=== PATIENT | female | born 1970 | race Two or more races ===

== ENCOUNTER 2020-12-25 01:35 | Inpatient (IN) | payer OTHER ==
[~2020-12-25] VITALS: Ht 165.1 cm; Wt 131.7 kg
[2020-12-25] MEDS ORDERED: ADENOSINE 3 MG/ML 2 ML VIAL IVP ONE (01:45)
[2020-12-25] MEDS ORDERED: ACETAMINOPHEN 1000 MG/ISO-OSM 100 ML IV ONE (01:45)
[2020-12-25] MEDS ORDERED: ONDANSETRON HCL 4 MG/2 ML VIAL IVP ONE (01:45)
[2020-12-25] MEDS ORDERED: SODIUM CHLORIDE 0.9% 1,000 ML IV ONE ×2 (01:45)
[2020-12-25 02:11] LABS: ABG A-A DIFF O2 5.2 mmHg (10-20.0); ABG BASE EXCESS -7.1 mmol/L (-2.0-3.0); ABG CARBOXYHEMOGLOBIN 0.6 % (0.0-1.5); ABG HCO3 19.9 mmol/L (22.0-26.0); ABG METHEMOGLOBIN 0.1 % (0.0-1.5); ABG OXYGEN SATURATION 98.1 % (95.0-98.0); ABG OXYHEMOGLOBIN 97.4 % (94.0-100.0); ABG PCO2 34 mmHg (35-45); ABG PH 7.353 (7.35-7.450); PO2, ARTERIAL BG 151.3 mmHg (84.0-92.0); SOURCE, BLOOD GAS ARTERIAL; TEMPERATURE, FAHRENHEIT, BG 106.5 FAHREN (96.0-98.6)
[2020-12-25 02:12] LABS: APPEARANCE,URINE CLEAR (CLEAR); BILIRUBIN,URINE NEGATIVE (NEGATIVE); GLUCOSE, URINE (UA) NEGATIVE (NEGATIVE); KETONES,URINE NEGATIVE (NEGATIVE); LEUKOCYTE ESTERASE ,URINE NEGATIVE (NEGATIVE); NITRATE,URINE NEGATIVE (NEGATIVE); OCCULT BLOOD,URINE LARGE (NEGATIVE); PROTEIN,URINE SEE CONFIRM (NEGATIVE); UROBILINOGEN,URINE 0.2 mg/dL (<=1.0)
[2020-12-25 02:12] LABS: BASOPHILS % (AUTO) 0.3 % (0.0-2.0); EOSINOPHILS % (AUTO) 0.1 % (1.0-6.0); HEMATOCRIT 40.3 % (36-46); HEMOGLOBIN 13.5 g/dL (12.0-16.0); LYMPHOCYTES # (AUTO) 2.1 K/uL (1.0-4.8); LYMPHOCYTES % (AUTO) 19.7 % (22.0-44.0); MEAN CORPUSCULAR HEMOGLOBIN 31.6 pg (26.0-34.0); MEAN CORPUSCULAR HGB CONC 33.4 G/dL (31.0-37.0); MEAN CORPUSCULAR VOLUME 95 fL (80-100); MONOCYTES # (AUTO) 0.3 K/uL (0.1-1.0); MONOCYTES % (AUTO) 2.7 % (2.0-9.0); NEUTROPHILS # (AUTO) 8.3 K/uL (1.8-7.7); NEUTROPHILS % (AUTO) 77.2 % (40.0-70.0); PLATELET COUNT (AUTO) 154 K/uL (150-450); RED BLOOD CELL COUNT(AUTO) 4.25 MIL/uL (4.00-5.20); RED CELL DISTRIBUTION WIDTH 12.6 % (11.5-14.5)
[2020-12-25 02:12] LABS: O2 DEVICE,BLOOD GAS CANNULA (ROOM AIR); SITE, BLOOD GAS LFT RADIAL
[2020-12-25 02:16] LABS: COVID AG,FIA SOURCE NASOPHARYNGEAL
[2020-12-25 02:16] LABS: AMPHET/METH SCREEN,URINE NEGATIVE (NEGATIVE); BARBITURATE SCREEN, URINE NEGATIVE (NEGATIVE); BENZODIAZEPINES SCREEN,URINE NEGATIVE (NEGATIVE); CANNABINOID SCREEN,URINE NEGATIVE (NEGATIVE); COCAINE SCREEN,URINE NEGATIVE (NEGATIVE); METHADONE SCREEN, URINE NEGATIVE (NEGATIVE); OPIATE SCREEN,URINE NEGATIVE (NEGATIVE)
[2020-12-25 02:17] LABS: PHENCYCLIDINE SCREEN,URINE NEGATIVE (NEGATIVE)
[2020-12-25 02:22] LABS: ANION GAP 20 mmol/L (8-16); CALCIUM, TOTAL 8.8 mg/dL (8.8-10.5); CARBON DIOXIDE 16 mmol/L (22-29); CHLORIDE 98 mmol/L (98-107); CREATININE 1.42 mg/dL (0.60-1.30); GLOMERULAR FILTR. RATE CALC 39 mL/min (>60); GLUCOSE,RANDOM 216 mg/dL (70-110); POTASSIUM 4.1 mmol/L (3.5-5.1); SODIUM SERUM 134 mmol/L (136-145); UREA NITROGEN, BLOOD 9 mg/dL (7-18)
[2020-12-25 02:27] LABS: SULFOSALICYLIC ACID,URINE 2+ (Negative)
[2020-12-25 02:29] LABS: BACTERIA,URINE Few /HPF (None Seen); SQUAMOUS EPITHELIAL CELL,UR Rare /LPF (None Seen); WBC,URINE 0-2 /HPF (0-5)
[2020-12-25 02:34] LABS: INR 1.1 (0.9-1.1); PROTHROMBIN TIME 11.6 SEC (9.4-11.6)
[2020-12-25 02:36] LABS: LACTIC ACID 5.9 mmol/L (0.4-2.0); SALICYLATE 0.6 mg/dL (2.8-20.0)
[2020-12-25 02:37] LABS: TROPONIN I < 0.02 ng/mL (0.00-0.05)
[2020-12-25 02:44] LABS: AMMONIA 12 umol/L (11-32)
[2020-12-25 02:45] LABS: B-TYPE NATRIURETIC PEPTIDE 10 pg/mL (0-100)
[2020-12-25] MEDS ORDERED: LORazepam 2 MG/ML VIAL IVP ONE (02:45)
[2020-12-25 02:47] LABS: ALANINE AMINOTRANSFERASE 80 U/L (12-78); ALBUMIN 3.3 g/dL (3.4-5.0); ALKALINE PHOSPHATASE 122 U/L (46-116); ASPARTATE AMINOTRANSFERASE 79 U/L (15-37); BILIRUBIN,TOTAL 1.4 mg/dL (0.1-1.0); CREATINE KINASE, TOTAL ONLY 109 U/L (26-192); LIPASE 60 U/L (73-393); TOTAL PROTEIN, SERUM 7.6 g/dL (6.4-8.2)
[2020-12-25 02:49] LABS: ACETAMINOPHEN < 2 mcg/mL (10-30)
[2020-12-25] MEDS ORDERED: MAGNESIUM SULFATE 1 GM in DEXTROSE 5%-WATER 50 ML IV ONE (03:15)
[2020-12-25] MEDS ORDERED: VANCOMYCIN HCL 1.25 GM in DEXTROSE 5%-WATER 250 ML IV ONE (04:30)
[2020-12-25] MEDS ORDERED: PIPERACILLIN/TAZO 3.375 GM/D5W 50 ML IV ONE (04:30)
[2020-12-25] MEDS ORDERED: SODIUM CHLORIDE 0.9% 500 ML IV ONE (06:00)
[2020-12-25 06:06] LABS: EOSINOPHILS % (AUTO) 0.1 % (1.0-6.0); HEMATOCRIT 34.4 % (36-46); HEMOGLOBIN 11.6 g/dL (12.0-16.0); LYMPHOCYTES % (AUTO) 6.8 % (22.0-44.0); MEAN CORPUSCULAR HGB CONC 33.5 G/dL (31.0-37.0); MEAN CORPUSCULAR VOLUME 95 fL (80-100); MONOCYTES # (AUTO) 1.1 K/uL (0.1-1.0); MONOCYTES % (AUTO) 7.6 % (2.0-9.0); NEUTROPHILS # (AUTO) 12.2 K/uL (1.8-7.7); PLATELET COUNT (AUTO) 116 K/uL (150-450); RED BLOOD CELL COUNT(AUTO) 3.62 MIL/uL (4.00-5.20); RED CELL DISTRIBUTION WIDTH 12.7 % (11.5-14.5)
[2020-12-25] MEDS ORDERED: SODIUM CHLORIDE 0.9% 250 ML IV ONE ×2 (06:20→11:38)
[2020-12-25] MEDS: SODIUM CHLORIDE 0.9% 1,000 ML IV SCH ×3 (06:26→19:08)
[2020-12-25 06:51] LABS: NEUTROPHILS % (AUTO) 85.5 % (40.0-70.0)
[2020-12-25 07:28] LABS: ALANINE AMINOTRANSFERASE 144 U/L (12-78); ALBUMIN 2.9 g/dL (3.4-5.0); ALKALINE PHOSPHATASE 98 U/L (46-116); ANION GAP 12 mmol/L (8-16); ASPARTATE AMINOTRANSFERASE 156 U/L (15-37); BILIRUBIN,TOTAL 0.9 mg/dL (0.1-1.0); CALCIUM, TOTAL 7.9 mg/dL (8.8-10.5); CARBON DIOXIDE 19 mmol/L (22-29); CHLORIDE 106 mmol/L (98-107); CREATINE KINASE, TOTAL ONLY 163 U/L (26-192); GLOMERULAR FILTR. RATE CALC > 60 mL/min (>60); GLUCOSE,RANDOM 209 mg/dL (70-110); SODIUM SERUM 137 mmol/L (136-145); UREA NITROGEN, BLOOD 9 mg/dL (7-18)
[2020-12-25 07:35] LABS: INFLUENZA TYPE A NEGATIVE FOR TYPE A (NEGATIVE); INFLUENZA TYPE B NEGATIVE FOR TYPE B (NEGATIVE)
[2020-12-25 07:39] LABS: POTASSIUM 2.9 mmol/L (3.5-5.1)
[2020-12-25] MEDS ORDERED: NOREPINEPHRINE 4 MG/D5%-WATER 250 ML IV PRN (07:45)
[2020-12-25 08:00] VITALS: BP 89/56
[2020-12-25] MEDS: HEPARIN SODIUM,PORCINE 5,000 UNITS/ML VIAL SQ SCH ×2 (08:00→16:15)
[2020-12-25] MEDS ORDERED: LIDOCAINE/PF 1% 5 ML VIAL ONE (08:45)
[2020-12-25] MEDS ORDERED: LIDOCAINE 1% 10 ML VIAL SQ ONE (09:30)
[2020-12-25] MEDS ORDERED: MORPHINE SULFATE 2 MG/ML SYRINGE IVP ONE (09:30)
[2020-12-25] MEDS ORDERED: POTASSIUM CHL 10 MEQ/WATER 50 ML IV PRN (09:45)
[2020-12-25] MEDS ORDERED: POTASSIUM CHLORIDE 20 MEQ ER TABLET PO PRN (09:45)
[2020-12-25 10:13] LABS: MAGNESIUM 1.9 mg/dL (1.80-2.40)
[2020-12-25 10:22] LABS: PHOSPHORUS 1.9 mg/dL (2.5-4.9)
[2020-12-25] MEDS ORDERED: MEBROFENIN TC99M/MCL ISOTOPE 1 EA INJ INJ ONE (10:25)
[2020-12-25] MEDS: PIPERACILLIN/TAZO 3.375 GM/D5W 50 ML IV SCH ×3 (11:33→22:20)
[2020-12-25] MEDS: POTASSIUM CHL 10 MEQ/WATER 50 ML IV PRN ×4 (11:40→13:54)
[2020-12-25 12:00] VITALS: BP 113/65
[2020-12-25] MEDS ORDERED: IPRATROPIUM BROMIDE 0.5 MG/2.5 ML NEB SOLUTION NEB PRN (14:00)
[2020-12-25] MEDS ORDERED: ALBUTEROL SULFATE 2.5 MG/0.5 ML NEB SOLUTION NEB PRN (14:00)
[2020-12-25 16:00] VITALS: BP 128/70
[2020-12-25] MEDS ORDERED: ACETAMINOPHEN 650 MG/20.3 ML SOLUTION UDCUP PO PRN (16:00)
[2020-12-25] MEDS: ACETAMINOPHEN 325 MG TABLET PO PRN ×2 (16:52→21:04)
[2020-12-25] MEDS ORDERED: KETOROLAC TROMETHAMINE 15 MG/ML VIAL IVP PRN (17:00)
[2020-12-25] MEDS: ONDANSETRON HCL 4 MG/2 ML VIAL IVP PRN (17:31)
[2020-12-25] MEDS: TraMADol HCL 50 MG TABLET PO PRN (17:40)
[2020-12-25 20:00] VITALS: BP 129/69
[2020-12-25] MEDS ORDERED: POTASSIUM PHOS,M-BASIC-D-BASIC 30 MMOL in DEXTROSE 5%-WATER 250 ML IV ONE (20:00)
[2020-12-25] MEDS: MetroNIDAZOLE 500 MG/NACL 100 ML IV SCH (22:49)
[2020-12-26] VITALS (7 sets, daily range): BP systolic 101–155; BP diastolic 49–83
[2020-12-26] MEDS: HEPARIN SODIUM,PORCINE 5,000 UNITS/ML VIAL SQ SCH ×3 (00:36→16:20)
[2020-12-26] MEDS: TraMADol HCL 50 MG TABLET PO PRN (00:36)
[2020-12-26] MEDS ORDERED: KETOROLAC TROMETHAMINE 30 MG/ML VIAL IVP ONE (01:45)
[2020-12-26] MEDS: SODIUM CHLORIDE 0.9% 1,000 ML IV SCH ×3 (04:28→20:47)
[2020-12-26] MEDS: PIPERACILLIN/TAZO 3.375 GM/D5W 50 ML IV SCH ×2 (04:28→10:07)
[2020-12-26 05:07] LABS: BASOPHILS % (AUTO) 0.1 % (0.0-2.0); EOSINOPHILS % (AUTO) 0.1 % (1.0-6.0); HEMATOCRIT 31.3 % (36-46); HEMOGLOBIN 10.4 g/dL (12.0-16.0); LYMPHOCYTES # (AUTO) 1.5 K/uL (1.0-4.8); LYMPHOCYTES % (AUTO) 13.3 % (22.0-44.0); MEAN CORPUSCULAR HEMOGLOBIN 31.8 pg (26.0-34.0); MEAN CORPUSCULAR HGB CONC 33.3 G/dL (31.0-37.0); MEAN CORPUSCULAR VOLUME 95 fL (80-100); MONOCYTES # (AUTO) 1.2 K/uL (0.1-1.0); NEUTROPHILS # (AUTO) 8.9 K/uL (1.8-7.7); NEUTROPHILS % (AUTO) 76.5 % (40.0-70.0); PLATELET COUNT (AUTO) 116 K/uL (150-450); RED BLOOD CELL COUNT(AUTO) 3.28 MIL/uL (4.00-5.20)
[2020-12-26 05:24] LABS: ALANINE AMINOTRANSFERASE 107 U/L (12-78); ALBUMIN 2.5 g/dL (3.4-5.0); ALKALINE PHOSPHATASE 91 U/L (46-116); ANION GAP 13 mmol/L (8-16); ASPARTATE AMINOTRANSFERASE 57 U/L (15-37); BILIRUBIN,TOTAL 0.6 mg/dL (0.1-1.0); CALCIUM, TOTAL 7.8 mg/dL (8.8-10.5); CARBON DIOXIDE 21 mmol/L (22-29); CHLORIDE 104 mmol/L (98-107); CREATININE 0.56 mg/dL (0.60-1.30); GLOMERULAR FILTR. RATE CALC > 60 mL/min (>60); GLUCOSE,RANDOM 122 mg/dL (70-110); POTASSIUM 3.6 mmol/L (3.5-5.1); SODIUM SERUM 138 mmol/L (136-145); TOTAL PROTEIN, SERUM 6.1 g/dL (6.4-8.2); UREA NITROGEN, BLOOD 6 mg/dL (7-18)
[2020-12-26] MEDS: MetroNIDAZOLE 500 MG/NACL 100 ML IV SCH ×3 (05:43→22:29)
[2020-12-26] MEDS: ACETAMINOPHEN 325 MG TABLET PO PRN ×2 (08:59→13:27)
[2020-12-26 09:29] LABS: C.DIFF GDH ANTIGEN, Stool Negative (Negative); C.DIFF TOXINS A&B, Stool Negative (Negative)
[2020-12-26] MEDS ORDERED: GADOTERATE MEGLUMINE 10 MMOL/20 ML VIAL IVP ONE (11:47)
[2020-12-26 12:21] LABS: ERYTHROCYTE SEDIMENTATION RATE 76 MM/HR (0-20)
[2020-12-26] MEDS: DOXYCYCLINE HYCLATE 100 MG in DEXTROSE 5%-WATER 100 ML IV SCH ×2 (12:26→22:28)
[2020-12-26 12:31] LABS: LACTATE DEHYDROGENASE 164 U/L (81-234)
[2020-12-26 12:39] LABS: C-REACTIVE PROTEIN QUANT 29.09 mg/dL (0.00-0.30)
[2020-12-26] MEDS ORDERED: DEXMEDETOMIDINE HCL 200 MCG in SODIUM CHLORIDE 0.9% 48 ML IV PRN (13:00)
[2020-12-26] MEDS: DEXMEDETOMIDINE HCL 200 MCG in SODIUM CHLORIDE 0.9% 48 ML IV PRN ×2 (13:16→18:06)
[2020-12-26] MEDS: ONDANSETRON HCL 4 MG/2 ML VIAL IVP PRN (13:27)
[2020-12-26 13:47] LABS: FERRITIN 839 ng/mL (8-252); THYROID STIMULATING HORMONE 0.67 uIU/mL (0.36-3.74)
[2020-12-26] MEDS: METOPROLOL SUCCINATE 25 MG ER TABLET PO SCH ×2 (14:10→20:46)
[2020-12-26] MEDS ORDERED: KETOROLAC TROMETHAMINE 15 MG/ML VIAL IVP PRN (14:30)
[2020-12-26] MEDS ORDERED: ACETAMINOPHEN 650 MG/ISO-OSM 65 ML IV PRN (14:30)
[2020-12-26] MEDS ORDERED: VANCOMYCIN HCL 1.5 GM in DEXTROSE 5%-WATER 250 ML IV ONE (15:00)
[2020-12-26] MEDS ORDERED: *CLINICAL-MEROPENEM DOSING CLINICAL ONE (15:00)
[2020-12-26 17:13] LABS: MONOTEST NEGATIVE (NEGATIVE)
[2020-12-26] MEDS: MEROPENEM 1 GM in SODIUM CHLORIDE 0.9% 100 ML IV SCH (18:06)
[2020-12-26] MEDS ORDERED: SODIUM CHLORIDE 0.9% 250 ML IV ONE (20:42)
[2020-12-26] MEDS: ACETAMINOPHEN 650 MG/ISO-OSM 65 ML IV PRN (22:28)
[2020-12-27] VITALS: BP 108/60
[2020-12-27] MEDS: VANCOMYCIN HCL 1 GM/D5% WATER 200 ML IV SCH ×2 (00:03→08:22)
[2020-12-27] MEDS: HEPARIN SODIUM,PORCINE 5,000 UNITS/ML VIAL SQ SCH ×3 (00:04→15:11)
[2020-12-27] MEDS: MEROPENEM 1 GM in SODIUM CHLORIDE 0.9% 100 ML IV SCH ×3 (01:50→17:50)
[2020-12-27 04:00] VITALS: BP 115/60
[2020-12-27] MEDS ORDERED: SODIUM CHLORIDE 0.9% 500 ML IV ONE (04:55)
[2020-12-27 05:06] LABS: HIV 1-2 SCREEN 4TH GEN W/RFLX Non Reactive (Non Reactive)
[2020-12-27 05:56] LABS: BASOPHILS % (AUTO) 0.2 % (0.0-2.0); EOSINOPHILS % (AUTO) 0.3 % (1.0-6.0); HEMATOCRIT 29.6 % (36-46); HEMOGLOBIN 9.8 g/dL (12.0-16.0); LYMPHOCYTES # (AUTO) 1.3 K/uL (1.0-4.8); LYMPHOCYTES % (AUTO) 13.3 % (22.0-44.0); MEAN CORPUSCULAR HEMOGLOBIN 31.8 pg (26.0-34.0); MEAN CORPUSCULAR HGB CONC 33.3 G/dL (31.0-37.0); MEAN CORPUSCULAR VOLUME 96 fL (80-100); MONOCYTES # (AUTO) 1.1 K/uL (0.1-1.0); MONOCYTES % (AUTO) 11.6 % (2.0-9.0); NEUTROPHILS # (AUTO) 7.2 K/uL (1.8-7.7); NEUTROPHILS % (AUTO) 74.6 % (40.0-70.0); PLATELET COUNT (AUTO) 129 K/uL (150-450); RED CELL DISTRIBUTION WIDTH 13.2 % (11.5-14.5)
[2020-12-27] MEDS: MetroNIDAZOLE 500 MG/NACL 100 ML IV SCH ×2 (05:58→13:41)
[2020-12-27 06:14] LABS: ALBUMIN 2.7 g/dL (3.4-5.0); BILIRUBIN,TOTAL 0.8 mg/dL (0.1-1.0); CALCIUM, TOTAL 8.1 mg/dL (8.8-10.5); CREATININE 1.74 mg/dL (0.60-1.30); POTASSIUM 3.5 mmol/L (3.5-5.1); TOTAL PROTEIN, SERUM 6.2 g/dL (6.4-8.2)
[2020-12-27 06:32] LABS: PROTHROMBIN TIME 10.3 SEC (9.4-11.6)
[2020-12-27 08:00] VITALS: BP 174/90
[2020-12-27] MEDS: POTASSIUM CHL 10 MEQ/WATER 50 ML IV PRN ×3 (08:22→12:19)
[2020-12-27] MEDS ORDERED: HydrALAZINE HCL 20 MG/ML VIAL IVP PRN (08:45)
[2020-12-27] MEDS: METOPROLOL SUCCINATE 25 MG ER TABLET PO SCH ×2 (09:05→20:20)
[2020-12-27] MEDS: DEXMEDETOMIDINE HCL 200 MCG in SODIUM CHLORIDE 0.9% 48 ML IV PRN (09:06)
[2020-12-27 12:00] VITALS: BP 173/93
[2020-12-27] MEDS ORDERED: CASPOFUNGIN ACETATE 70 MG in SODIUM CHLORIDE 0.9% 250 ML IV ONE (12:00)
[2020-12-27] MEDS: DOXYCYCLINE HYCLATE 100 MG in DEXTROSE 5%-WATER 100 ML IV SCH (12:17)
[2020-12-27] MEDS: SODIUM CHLORIDE 0.9% 1,000 ML IV SCH ×2 (12:17→17:50)
[2020-12-27] MEDS: ONDANSETRON HCL 4 MG/2 ML VIAL IVP PRN (13:05)
[2020-12-27] MEDS: ACETAMINOPHEN 650 MG/ISO-OSM 65 ML IV PRN (13:41)
[2020-12-27] MEDS ORDERED: LORazepam 2 MG/ML VIAL IM PRN (15:15)
[2020-12-27 16:00] VITALS: BP 137/86
[2020-12-27] MEDS ORDERED: ACETAMINOPHEN 650 MG/ISO-OSM 65 ML IV PRN (18:15)
[2020-12-27 20:00] VITALS: BP 153/95
[2020-12-27] MEDS ORDERED: VANCOMYCIN HCL 1 GM/D5% WATER 200 ML IV SCH (20:00)
[2020-12-28] MEDS ORDERED: CASPOFUNGIN ACETATE 50 MG in SODIUM CHLORIDE 0.9% 250 ML IV SCH (14:00)
== END 2020-12-27 21:30 | disposition short-term general hospital (02) | DRG 872 ==
LOC: EMS 01:35 → ICU 05:00
PROVIDERS: ADMIT Internal Medicine; ATTEND Internal Medicine
PROC: 02H633Z Insertion of Infusion Device into Right Atrium, Percutaneous Approach (ICD-10-PCS; principal; 2020-12-25)
PROC: B548ZZA Ultrasonography of Superior Vena Cava, Guidance (ICD-10-PCS; 2020-12-25)
PROC: 03HC33Z Insertion of Infusion Device into Left Radial Artery, Percutaneous Approach (ICD-10-PCS; 2020-12-25)
PROC: 4A133B1 Monitoring of Arterial Pressure, Peripheral, Percutaneous Approach (ICD-10-PCS; 2020-12-25)
PROC: 4A133J1 Monitoring of Arterial Pulse, Peripheral, Percutaneous Approach (ICD-10-PCS; 2020-12-25)
DX: A41.9 Sepsis, unspecified organism (principal); N17.9 Acute kidney failure, unspecified; I47.1 Supraventricular tachycardia; K57.32 Diverticulitis of large intestine without perforation or abscess without bleeding; G93.40 Encephalopathy, unspecified; E11.9 Type 2 diabetes mellitus without complications; E66.9 Obesity, unspecified; E87.6 Hypokalemia; I10 Essential (primary) hypertension; F17.200 Nicotine dependence, unspecified, uncomplicated; F41.9 Anxiety disorder, unspecified; Z20.822 Contact with and (suspected) exposure to COVID-19; Z82.49 Family history of ischemic heart disease and other diseases of the circulatory system; Z83.3 Family history of diabetes mellitus; Z90.710 Acquired absence of both cervix and uterus; Z79.899 Other long term (current) drug therapy; Z68.32 Body mass index [BMI] 32.0-32.9, adult
CPT/HCPCS: 36600; 51701; 70450; 70553; 71045; 71250; 72192; 74150; 74183; 76705; 78226; 80053; 81001; 81002; 82140; 82271; 82550; 82728; 82805; 82948; 83605; 83615; 83690; 83735; 83880; 84100; 84132; 84145; 84443; 84484; 85025; 85610; 85651; 85730; 86038; 86140; 86308; 86430; 86592; 86753; 87040; 87045; 87081; 87324; 87389; 87449; 87804; 93005; 93306; 94640; 99291; A9537; A9575; G0378; G0480; G0481; J0131; J0360; J0637; J1644; J1885; J2001; J2060; J2185; J2270; J2405; J2543; J3370; J3475; J3480; J3490; J7030; J7040; J7050; J7060; 36415-L1; 36415-TC; J7613; U0003